=== PATIENT | male | born 1975 | race American Indian/Alaskan Native ===

== ENCOUNTER 2018-04-14 23:04 | Emergency (ER) | payer OTHER ==
[2018-04-15 00:46] VITALS: BP 165/100
[2018-04-15] MEDS ORDERED: MOTRIN PO ONE (00:46)
--- NOTE | 2018-04-15 01:51 | XRay Report ---
FINAL REPORT PROCEDURE: XR KNEE 3V LT TECHNIQUE: LEFT knee radiographs, AP, lateral and oblique views. CPT 63387 HISTORY: Possible fracture. Left knee pain. COMPARISON: No prior studies are available for comparison. FINDINGS: Fracture (s) and/or Dislocation(s): None . Alignment: Normal . Joint space(s): Mild medial compartment narrowing. Tibial eminence spurring. Unfused anterior tibial apophysis. Soft tissues: Normal . Bone mineralization: Normal . Foreign bodies: None . IMPRESSION: No radiographic evidence of displaced fracture. Mild degenerative changes.
--- NOTE | 2018-04-15 06:18 | Emergency Department Report ---
ED Extremity Problem HPI - General Chief complaint: Extremity Injury, Lower Stated complaint: LT KNEE PAIN Time Seen by Provider: 04/15/18 06:11 Source: patient Mode of arrival: Ambulatory Limitations: No Limitations - History of Present Illness Initial comments: 43-year-old obese male comes in stating that he twisted his left knee at work while trying to sit down. Patient has no other concerns denies any falling no other traumas. Patient denies any past medical history. Complaint: extremity pain -: days(s) (1) Location: left, knee History of Same: No -: Yes arthralgia Severity scale (0 -10): 10 Quality: aching, sharp Consistency: intermittent Associated Symptoms: denies other symptoms - Related Data Previous Rx's Medication Instructions Recorded Last Taken Type Ibuprofen [Motrin 800 MG tab] 800 mg PO Q8HR PRN #30 tablet 04/15/18 Unknown Rx Allergies Allergy/AdvReac Type Severity Reaction Status Date / Time No Known Allergies Allergy Unverified 04/15/18 00:39 ED Review of Systems ROS: Stated complaint: LT KNEE PAIN Other details as noted in HPI ED Past Medical Hx - Past Medical History Previous Medical History?: No - Surgical History Past Surgical History?: No - Social History Smoking Status: Never Smoker - Medications Home Medications: Home Medications Medication Instructions Recorded Confirmed Last Taken Type Ibuprofen [Motrin 800 MG tab] 800 mg PO Q8HR PRN #30 tablet 04/15/18 Unknown Rx ED Physical Exam - General Limitations: No Limitations ED Course Vital Signs 04/15/18 00:39 Temperature 98.1 F Pulse Rate 76 Respiratory 20 Rate Blood Pressure 165/100 O2 Sat by Pulse 96 Oximetry ED Medical Decision Making - Radiology Data Radiology results: report reviewed, image reviewed FINDINGS: Fracture (s) and/or Dislocation(s): None . Alignment: Normal . Joint space(s): Mild medial compartment narrowing. Tibial eminence spurring. Unfused anterior tibial apophysis. Soft tissues: Normal . Bone mineralization: Normal . Foreign bodies: None . IMPRESSION: No radiographic evidence of displaced fracture. Mild degenerative changes. Transcribed By: ASHISH Dictated By: KJ ADAM MD Electronically Authenticated By: KJ ADAM MD Signed Date/Time: 04/15/18146 DD/ 6 TD/TT: 04/15/18 014 - Medical Decision Making Patient's been evaluated by this provider fast track. Patient reports that he was given pain medication since been in the emergency room. Patient presented he feels much better and is able to ambulate without difficulties. Discussed the patient I would discharge him on pain medication and for him to follow up with [facility]. Critical care attestation.: If time is entered above; I have spent that time in minutes in the direct care of this critically ill patient, excluding procedure time. ED Disposition Clinical Impression: Sprain of left knee Qualifiers: Encounter type: initial encounter Involved ligament of knee: unspecified ligament Qualified Code(s): S83.92XA - Sprain of unspecified site of left knee, initial encounter Disposition: TO HOME OR SELFCARE Is pt being admited?: No Does the pt Need Aspirin: No Condition: Stable Instructions: Knee Sprain (ED) Additional Instructions: Please is take pain medication as prescribed. Follow up with her primary care provider if symptoms persist or gets worse. Prescriptions: Ibuprofen [Motrin 800 MG tab] 800 mg PO Q8HR PRN #30 tablet PRN Reason: Pain , Severe (7-10) Referrals: PRIMARY CARE, [Primary Care Provider] - 3-5 Days [facility] [Provider Group] - 3-5 Days Forms: Work/School Release Form(ED)
== END 2018-04-15 06:37 | disposition home or self-care (01) ==
LOC: ED 23:04
DX: S83.92XA Sprain of unspecified site of left knee, initial encounter (principal); W18.39XA Other fall on same level, initial encounter; Y93.89 Activity, other specified; Y92.89 Other specified places as the place of occurrence of the external cause; Y99.8 Other external cause status
CPT/HCPCS: 99283